=== PATIENT | male | born 1945 | race Hispanic/Latino ===

== ENCOUNTER → 2018-06-05 | Outpatient (CLI) | payer MEDICARE | END | disposition home or self-care (01) | LOC: RAH 09:34 | PROVIDERS: ATTEND Urology | DX: C67.8 Malignant neoplasm of overlapping sites of bladder (principal); R97.21 Rising PSA following treatment for malignant neoplasm of prostate; Z93.1 Gastrostomy status | CPT/HCPCS: 74018; 76100 ==